=== PATIENT | male | born 1950 | race Two or more races ===

== ENCOUNTER 2019-10-17 07:00 | Day surgery (SDC) | payer MEDICARE, MEDICAID ==
[~2019-10-17] VITALS: Ht 177.8 cm; Wt 77.1 kg
[~2019-10-17 07:00] MED LIST: ALBUAER3 IN; ASPI-404 PO; ATEN-60 PO; CALC0.25 PO; DOXA1TAB50 PO; FLUT50AE IN; HYDR-4296 PO; ICOS1CAP PO; LORA-622 PO; MONT10TA34 PO; PANT40TA2 PO; SIMV-13 PO; SIRO1TAB6 PO; TACR0.5C15 PO; TRAM50TA2 PO; TRAZ100T3 PO
[2019-10-17] MEDS ORDERED: IODIXANOL 320MG/ML 100ML BTL IV ONE ×2 (07:35→08:08)
[2019-10-17] MEDS ORDERED: SODIUM CHL 0.9% 0 ML ONE (07:47)
[2019-10-17] MEDS ORDERED: VERAPAMIL 2.5MG/ML INJ 2ML VIAL IV ONE (07:47)
[2019-10-17] MEDS ORDERED: ANGIOMAX 250 MG VIAL IV ONE (07:47)
[2019-10-17] MEDS ORDERED: fentaNYL CITRATE 100 MCG/2 ML VL ONE (07:47)
[2019-10-17] MEDS ORDERED: MIDAZOLAM HCL 1MG/1ML-2 ML VIAL ONE (07:47)
[2019-10-17] MEDS ORDERED: HEPARIN IN NS 1000Units/500mL 0 ML ONE (08:17)
[2019-10-17] MEDS ORDERED: HEPARIN SODIUM (PORCINE) 5000 UNITS/ML 1ML VIAL ONE (08:18)
[2019-10-17] MEDS ORDERED: SODIUM CHL 0.9% 500 ML IV ONE (08:45)
== END 2019-10-17 11:10 | disposition home or self-care (01) ==
LOC: CATH 07:00
PROVIDERS: ATTEND Internal Medicine
DX: I25.10 Atherosclerotic heart disease of native coronary artery without angina pectoris (principal); N40.0 Benign prostatic hyperplasia without lower urinary tract symptoms; M19.90 Unspecified osteoarthritis, unspecified site; B19.20 Unspecified viral hepatitis C without hepatic coma; I12.9 Hypertensive chronic kidney disease with stage 1 through stage 4 chronic kidney disease, or unspecified chronic kidney disease; N18.3 Chronic kidney disease, stage 3 (moderate); E78.00 Pure hypercholesterolemia, unspecified; I65.29 Occlusion and stenosis of unspecified carotid artery; J45.909 Unspecified asthma, uncomplicated; Z79.899 Other long term (current) drug therapy; Z98.890 Other specified postprocedural states; Z94.4 Liver transplant status; Z87.891 Personal history of nicotine dependence
CPT/HCPCS: 93005; 93458; C1769; C1887; C1894; J1644; J2250; J3010; Q9967; 99152